=== PATIENT | male | born 1990 | race African-American/Black ===

== ENCOUNTER 2021-08-31 00:53 | Emergency (ER) | payer OTHER ==
[~2021-08-31] VITALS: Ht 182.9 cm; Wt 97.5 kg
[2021-08-31] MEDS ORDERED: CEPHALEXIN500 MG PO (01:43)
[2021-08-31 03:12] VITALS: BP 140/102
== END 2021-08-31 03:08 | disposition home or self-care (01) ==
LOC: ER 00:53
DX: N48.29 Other inflammatory disorders of penis (principal); F17.200 Nicotine dependence, unspecified, uncomplicated; F12.90 Cannabis use, unspecified, uncomplicated